=== PATIENT | male | born 1955 | race Caucasian/White ===

== ENCOUNTER 2024-02-23 09:21 | Inpatient (IN) ==
[2024-02-23] MEDS ORDERED: IOPAMIDOL 100 ML BOTTLE IV ONE (09:22)
[2024-02-23 12:35] LABS: ALT/SGPT 15 U/L (<40); AST/SGOT 31 U/L (<40); Albumin 3.5 gm/dL (3.2-5.2); Albumin/Globulin Ratio 1.1 (1.0-2.3); Alkaline Phosphatase 248 U/L (39-117); Bilirubin,Total 0.5 mg/dL (0.1-1.0); Blood Urea Nitrogen 13 mg/dL (8-23); Carbon Dioxide 29 mmol/L (22-30); Chloride 97 mmol/L (96-108); Globulin 3.2 gm/dL (2.2-3.7); Glomerular Filtration Rate 95; Glucose 136 mg/dL (70-105); Potassium 3.6 mmol/L (3.3-5.1); Sodium 138 mmol/L (133-145)
[2024-02-23 12:35] LABS: Basophils # (Auto) 0.04 K/mcL (0.00-0.30); Basophils % (Auto) 0.2 % (0.0-2.0); Eosinophils # (Auto) 0 K/mcL (0.00-0.70); Eosinophils % (Auto) 0 % (0.0-7.0); Hematocrit 42.6 % (40.1-51.0); Hemoglobin 12.7 g/dL (13.7-17.5); Lymphocytes # (Auto) 0.45 K/mcL (1.50-4.80); Lymphocytes % (Auto) 2.6 % (15.5-49.0); Mean Cell Volume 104.9 fL (80.0-100.0); Mean Corpuscular HGB Conc 29.8 g/dL (31.0-36.0); Mean Platelet Volume 10.3 fL (8.8-12.5); Monocytes # (Auto) 0.28 K/mcL (0.10-0.90); Monocytes % (Auto) 1.6 % (1.0-12.0); Neutrophils % (Auto) 95.3 % (38.0-78.0); Platelet Count 329 K/mcL (140-440); RBC 4.06 M/mcL (4.63-6.08); Red Cell Distribution Width 12.8 % (11.5-14.5); WBC 17.3 K/mcL (4.5-11.0)
[2024-02-23] MEDS: HYDROcodone/APAP 5/325MG TABLET PO ONE (13:09)
[2024-02-23] MEDS: cefTRIAXone 1 GM VIAL IV ONE (13:09)
[2024-02-23] MEDS: 0.9 % SODIUM CHLORIDE 1,000 ML IV ONE (14:25)
[2024-02-23] MEDS: THIAMINE 200 MG in 0.9 % SODIUM CHLORIDE 50 ML IV ONE (14:37)
[2024-02-23 16:00] LABS: Appearance,Urine Clear (Clear); Bacteria,Urine Many /hpf (0); Bilirubin,Urine Negative (Negative); Calcium Oxalate Crystals,Urine Few /hpf; Color,Urine Yellow; Glucose,Urine (UA) Negative (Negative); Ketones,Urine Negative (Negative); Leukocyte Esterase,Urine Trace /uL (Negative); Nitrate,Urine Positive (Negative); PH,Urine 5.5 (5.0-9.0); Protein,Urine Negative (Negative); Urine Blood Negative ery/mcL (Negative); Urine RBC 0 /hpf (0-3); Urine Squamous Epithelial Cell 0 /hpf (0-4); Urine WBC 14 /hpf (0-4); Urobilinogen,Urine Normal
[2024-02-23] MEDS ORDERED: NALOXONE HCL 0.4 MG/ML VIAL IV PRN (16:36)
[2024-02-23] MEDS: HYDROmorphone 1 MG/ML SYRINGE IV ONE ×2 (16:45→20:00)
[2024-02-23] MEDS: HYDROmorphone 1 MG/ML SYRINGE ONE ×2 (17:00→20:03)
[2024-02-23 17:41] LABS: INR 1.1 (0.9-1.1); Partial Thromboplastin Time 35.3 sec (20.0-37.0); Prothrombin Time 14.8 sec (11.9-14.5)
[2024-02-23] MEDS ORDERED: ACETAMINOPHEN 325 MG TABLET PO PRN (17:47)
[2024-02-23] MEDS ORDERED: IPRATROPIUM/ALBUTEROL 3 ML AMPUL.NEB NEB PRN (17:47)
[2024-02-23] MEDS: VANCOMYCIN PER PHARMACY IV ONE (18:18)
[2024-02-23] MEDS: LACTATED RINGERS 1,000 ML IV SCH (18:27)
[2024-02-23] MEDS: CEFEPIME 2 GM VIAL IV SCH (18:28)
[2024-02-23] MEDS: HEPARIN SOD,PORK IN 0.45% NACL 25,000 UNIT in PREMIX 1 BAG IV SCH (18:55)
[2024-02-23] MEDS: VANCOMYCIN 1,500 MG in 0.9 % SODIUM CHLORIDE 500 ML IV ONE (18:56)
[2024-02-23] MEDS: HEPARIN SOD,PORK IN 0.45% NACL 500 ML IV ONE (20:01)
[2024-02-23] MEDS: 0.9 % SODIUM CHLORIDE 10 ML SYRINGE IV SCH (20:01)
[2024-02-23] MEDS: SENNOSIDES 1 TABLET PO PRN (21:25)
[2024-02-23] MEDS: POLYETHYLENE GLYCOL 3350 17 GM PACKET PO PRN (21:25)
[2024-02-23] MEDS: HYDROcodone/APAP 5/325MG TABLET PO PRN (21:25)
[2024-02-23] MEDS: fentaNYL 50 MCG PATCH TD SCH (22:26)
[2024-02-24] MEDS: HYDROcodone/APAP 10/325MG TABLET PO PRN ×2 (01:05→10:09)
[2024-02-24 06:41] LABS: Basophils # (Auto) 0.04 K/mcL (0.00-0.30); Basophils % (Auto) 0.6 % (0.0-2.0); Eosinophils # (Auto) 0.04 K/mcL (0.00-0.70); Eosinophils % (Auto) 0.6 % (0.0-7.0); Hematocrit 29.2 % (40.1-51.0); Hemoglobin 9.3 g/dL (13.7-17.5); Lymphocytes # (Auto) 0.81 K/mcL (1.50-4.80); Lymphocytes % (Auto) 11.3 % (15.5-49.0); Mean Cell Volume 96.7 fL (80.0-100.0); Mean Corpuscular HGB Conc 31.8 g/dL (31.0-36.0); Mean Platelet Volume 10.2 fL (8.8-12.5); Monocytes # (Auto) 0.71 K/mcL (0.10-0.90); Monocytes % (Auto) 9.9 % (1.0-12.0); Neutrophils % (Auto) 77.3 % (38.0-78.0); Platelet Count 253 K/mcL (140-440); RBC 3.02 M/mcL (4.63-6.08); Red Cell Distribution Width 12.7 % (11.5-14.5); WBC 7.2 K/mcL (4.5-11.0)
[2024-02-24 06:55] LABS: ALT/SGPT 27 U/L (<40); AST/SGOT 34 U/L (<40); Albumin 2.6 gm/dL (3.2-5.2); Alkaline Phosphatase 207 U/L (39-117); Bilirubin,Direct < 0.2 mg/dL (0-0.3); Bilirubin,Total 0.2 mg/dL (0.1-1.0); Blood Urea Nitrogen 9 mg/dL (8-23); Calcium 9.1 mg/dL (8.6-10.4); Carbon Dioxide 27 mmol/L (22-30); Chloride 102 mmol/L (96-108); Globulin 2.5 gm/dL (2.2-3.7); Glomerular Filtration Rate 119; Glucose 108 mg/dL (70-105); Lactate Dehydrogenase 103 U/L (135-225); Potassium 3.3 mmol/L (3.3-5.1); Sodium 139 mmol/L (133-145); Triglycerides 99 mg/dL (<150); Uric Acid 5.8 mg/dL (2.5-8.0)
[2024-02-24] MEDS ORDERED: VANCOMYCIN PER PHARMACY IV SCH (07:45)
[2024-02-24] MEDS: PANTOPRAZOLE 40 MG TABLET PO SCH (07:55)
[2024-02-24] MEDS ORDERED: HYDROcodone/APAP 10/325MG TABLET PO PRN (08:02)
[2024-02-24] MEDS: LIOTHYRONINE 5 MCG TABLET PO SCH (09:33)
[2024-02-24] MEDS: LEVOTHYROXINE 75 MCG TABLET PO SCH (09:33)
[2024-02-24] MEDS: VANCOMYCIN 1,000 MG in 0.9 % SODIUM CHLORIDE 250 ML IV SCH (10:09)
[2024-02-24] MEDS: DALFAMPRIDINE 10 MG PO SCH (10:45)
[2024-02-24] MEDS: HEPARIN SOD,PORK IN 0.45% NACL 500 ML IV ONE (15:20)
[2024-02-24] MEDS: BACLOFEN INTRATHECA SCH (18:47)
[2024-02-25 06:29] LABS: Basophils # (Auto) 0.04 K/mcL (0.00-0.30); Basophils % (Auto) 0.6 % (0.0-2.0); Eosinophils # (Auto) 0.04 K/mcL (0.00-0.70); Eosinophils % (Auto) 0.6 % (0.0-7.0); Hematocrit 30.1 % (40.1-51.0); Hemoglobin 9.8 g/dL (13.7-17.5); Lymphocytes # (Auto) 0.97 K/mcL (1.50-4.80); Lymphocytes % (Auto) 13.6 % (15.5-49.0); Mean Corpuscular HGB Conc 32.6 g/dL (31.0-36.0); Monocytes # (Auto) 0.79 K/mcL (0.10-0.90); Monocytes % (Auto) 11.1 % (1.0-12.0); Platelet Count 277 K/mcL (140-440); RBC 3.17 M/mcL (4.63-6.08); Red Cell Distribution Width 12.5 % (11.5-14.5); WBC 7.1 K/mcL (4.5-11.0)
[2024-02-25 06:53] LABS: ALT/SGPT 20 U/L (<40); AST/SGOT 22 U/L (<40); Albumin 2.7 gm/dL (3.2-5.2); Albumin/Globulin Ratio 1.1 (1.0-2.3); Alkaline Phosphatase 194 U/L (39-117); Bilirubin,Direct < 0.2 mg/dL (0-0.3); Bilirubin,Total < 0.2 mg/dL (0.1-1.0); Blood Urea Nitrogen 8 mg/dL (8-23); Calcium 8.7 mg/dL (8.6-10.4); Carbon Dioxide 23 mmol/L (22-30); Chloride 102 mmol/L (96-108); Globulin 2.4 gm/dL (2.2-3.7); Glomerular Filtration Rate 119; Glucose 108 mg/dL (70-105); Lactate Dehydrogenase 110 U/L (135-225); Phosphorous 2.4 mg/dL (2.5-4.5); Potassium 3.2 mmol/L (3.3-5.1); Sodium 136 mmol/L (133-145); Triglycerides 132 mg/dL (<150); Uric Acid 5.5 mg/dL (2.5-8.0)
[2024-02-25 07:44] LABS: Anti-XA-UFH 0.69 IU/mL (0.30-0.60)
[2024-02-25] MEDS: POTASSIUM CHLORIDE 20 MEQ TABLET PO ONE (08:20)
[2024-02-25] MEDS: PYRIDOXINE 100 MG TABLET PO SCH (08:20)
[2024-02-25] MEDS ORDERED: BETAINE HCL 300 MG PO SCH (09:00)
[2024-02-25] MEDS ORDERED: FISH OIL 1,000 MG CAPSULE PO SCH (09:00)
[2024-02-25] MEDS: LIDOCAINE 4% TOP PATCH TOPICAL SCH (11:54)
[2024-02-25] MEDS: HEPARIN 5,000 UNIT/ML VIAL IV ONE (12:09)
[2024-02-25] MEDS: DALFAMPRIDINE 10 MG PO SCH (19:10)
[2024-02-25] MEDS: KETOROLAC 15 MG/ML VIAL IV PRN (19:10)
[2024-02-25] MEDS: ENOXAPARIN 80 MG/0.8 ML SYRINGE SQ SCH (21:13)
[2024-02-26 06:45] LABS: ALT/SGPT 16 U/L (<40); AST/SGOT 18 U/L (<40); Albumin 2.7 gm/dL (3.2-5.2); Albumin/Globulin Ratio 1.1 (1.0-2.3); Alkaline Phosphatase 185 U/L (39-117); Bilirubin,Direct < 0.2 mg/dL (0-0.3); Bilirubin,Total 0.2 mg/dL (0.1-1.0); Blood Urea Nitrogen 6 mg/dL (8-23); Calcium 8.9 mg/dL (8.6-10.4); Carbon Dioxide 24 mmol/L (22-30); Chloride 106 mmol/L (96-108); Globulin 2.5 gm/dL (2.2-3.7); Glomerular Filtration Rate 119; Glucose 109 mg/dL (70-105); Lactate Dehydrogenase 115 U/L (135-225); Phosphorous 2.2 mg/dL (2.5-4.5); Potassium 3.1 mmol/L (3.3-5.1); Sodium 139 mmol/L (133-145); Triglycerides 148 mg/dL (<150); Uric Acid 4.7 mg/dL (2.5-8.0)
[2024-02-26] MEDS: POTASSIUM CHLORIDE 20 MEQ TABLET PO ONE (08:45)
[2024-02-26] MEDS ORDERED: LINEZOLID 600 MG TABLET PO SCH (13:30)
[2024-02-26] MEDS ORDERED: FOSFOMYCIN TROMETHAMINE 3 GM PACKET PO ONE (13:41)
[2024-02-26] MEDS: DAPTOmycin 500 MG VIAL IV SCH (14:15)
[2024-02-26] MEDS ORDERED: BISMUTH SUBSALICYLATE 15 ML ORAL.SUSP PO PRN (20:15)
[2024-02-26] MEDS ORDERED: [UNRECOGNIZED DRUG - OTHER] PO SCH (21:00)
[2024-02-26] MEDS: BISMUTH SUBSALICYLATE 15 ML ORAL.SUSP PO ONE (21:14)
[2024-02-26] MEDS: LANSOPRAZOLE 15 MG PO SCH (21:36)
[2024-02-27 06:44] LABS: ALT/SGPT 25 U/L (<40); AST/SGOT 32 U/L (<40); Albumin 2.3 gm/dL (3.2-5.2); Albumin/Globulin Ratio 0.9 (1.0-2.3); Alkaline Phosphatase 218 U/L (39-117); Bilirubin,Direct < 0.2 mg/dL (0-0.3); Bilirubin,Total < 0.2 mg/dL (0.1-1.0); Blood Urea Nitrogen 7 mg/dL (8-23); Calcium 8.7 mg/dL (8.6-10.4); Carbon Dioxide 23 mmol/L (22-30); Chloride 109 mmol/L (96-108); Globulin 2.5 gm/dL (2.2-3.7); Glomerular Filtration Rate 119; Glucose 106 mg/dL (70-105); Lactate Dehydrogenase 106 U/L (135-225); Phosphorous 2.1 mg/dL (2.5-4.5); Potassium 3.7 mmol/L (3.3-5.1); Sodium 140 mmol/L (133-145); Triglycerides 131 mg/dL (<150); Uric Acid 4.3 mg/dL (2.5-8.0)
[2024-02-27] MEDS: HYDROcodone/APAP 10/325MG TABLET PO PRN (15:25)
[2024-02-28 17:10] LABS: Amphetamine Screen,Urine Suspect positive; Barbiturate Screen,Urine None detected; Benzodiazepines Screen,Urine None detected; Cannabinoid Screen,Urine Suspect Positive; Cocaine Screen,Urine None detected; Fentanyl, Urine Screen Suspect Positive; Opiate Screen,Urine Suspect Positive; Oxycodone, Urine Screen None detected; Phencyclidine Screen,Urine None detected
[2024-02-28] MEDS: BETAINE HCL 300 MG PO SCH (17:45)
[2024-02-28] MEDS: fentaNYL 50 MCG PATCH TD SCH (23:56)
[2024-02-29 05:49] LABS: Basophils # (Auto) 0.04 K/mcL (0.00-0.30); Basophils % (Auto) 0.6 % (0.0-2.0); Eosinophils # (Auto) 0.28 K/mcL (0.00-0.70); Eosinophils % (Auto) 3.9 % (0.0-7.0); Hematocrit 31.4 % (40.1-51.0); Hemoglobin 10.1 g/dL (13.7-17.5); Lymphocytes # (Auto) 1.35 K/mcL (1.50-4.80); Lymphocytes % (Auto) 18.7 % (15.5-49.0); Mean Cell Volume 94.9 fL (80.0-100.0); Mean Corpuscular HGB Conc 32.2 g/dL (31.0-36.0); Mean Platelet Volume 9.5 fL (8.8-12.5); Monocytes # (Auto) 0.64 K/mcL (0.10-0.90); Monocytes % (Auto) 8.9 % (1.0-12.0); Neutrophils % (Auto) 67.1 % (38.0-78.0); Platelet Count 297 K/mcL (140-440); RBC 3.31 M/mcL (4.63-6.08); Red Cell Distribution Width 12.6 % (11.5-14.5); WBC 7.2 K/mcL (4.5-11.0)
[2024-02-29 06:15] LABS: ALT/SGPT 90 U/L (<40); AST/SGOT 96 U/L (<40); Albumin 2.4 gm/dL (3.2-5.2); Albumin/Globulin Ratio 0.9 (1.0-2.3); Alkaline Phosphatase 429 U/L (39-117); Bilirubin,Direct < 0.2 mg/dL (0-0.3); Bilirubin,Total 0.2 mg/dL (0.1-1.0); Blood Urea Nitrogen 7 mg/dL (8-23); Calcium 9.2 mg/dL (8.6-10.4); Carbon Dioxide 25 mmol/L (22-30); Chloride 108 mmol/L (96-108); Globulin 2.7 gm/dL (2.2-3.7); Glomerular Filtration Rate 119; Glucose 108 mg/dL (70-105); Lactate Dehydrogenase 123 U/L (135-225); Phosphorous 2.4 mg/dL (2.5-4.5); Potassium 3.7 mmol/L (3.3-5.1); Sodium 140 mmol/L (133-145); Triglycerides 125 mg/dL (<150); Uric Acid 2.9 mg/dL (2.5-8.0)
[2024-02-29] MEDS ORDERED: PROPOFOL 200 MG/20 ML VIAL IV ONE (08:40)
[2024-02-29] MEDS ORDERED: SUGAMMADEX SODIUM 200 MG/2 ML VIAL IV ONE (08:40)
[2024-02-29] MEDS ORDERED: fentaNYL 100 MCG/2 ML VIAL ONE (08:40)
[2024-02-29] MEDS ORDERED: GLYCOPYRROLATE 0.2 MG/ML VIAL IV ONE ×2 (08:43→09:04)
[2024-02-29] MEDS ORDERED: DEXAMETHASONE 10 MG/ML VIAL ONE (08:43)
[2024-02-29] MEDS ORDERED: ONDANSETRON 4 MG/2 ML VIAL ONE (08:43)
[2024-02-29] MEDS ORDERED: ROCURONIUM 10 MG/ML ML IV ONE (08:43)
[2024-02-29] MEDS ORDERED: PHENYLephrine 1 MG/10 ML SYRINGE (ANEST) ONE (09:21)
[2024-02-29] MEDS ORDERED: IPRATROPIUM/ALBUTEROL 3 ML AMPUL.NEB NEB PRN (09:38)
[2024-02-29] MEDS ORDERED: ONDANSETRON 4 MG/2 ML VIAL IV PRN (09:38)
[2024-02-29] MEDS: fentaNYL 100 MCG/2 ML VIAL IV PRN (10:50)
[2024-02-29] MEDS: LACTATED RINGERS 1,000 ML IV SCH (18:42)
[2024-03-01] MEDS: LANSOPRAZOLE 30 MG PO SCH (07:24)
[2024-03-03] MEDS: ONDANSETRON 4 MG/2 ML VIAL IV PRN (12:31)
[2024-03-03] MEDS: BISACODYL 10 MG SUPP.RECT PR PRN (12:31)
[2024-03-04 06:23] LABS: ALT/SGPT 74 U/L (<40); AST/SGOT 39 U/L (<40); Albumin 2.7 gm/dL (3.2-5.2); Alkaline Phosphatase 419 U/L (39-117); Bilirubin,Direct < 0.2 mg/dL (0-0.3); Bilirubin,Total < 0.2 mg/dL (0.1-1.0); Blood Urea Nitrogen 8 mg/dL (8-23); Calcium 8.8 mg/dL (8.6-10.4); Carbon Dioxide 26 mmol/L (22-30); Chloride 103 mmol/L (96-108); Globulin 2.7 gm/dL (2.2-3.7); Glomerular Filtration Rate 134; Glucose 109 mg/dL (70-105); Lactate Dehydrogenase 112 U/L (135-225); Phosphorous 3.7 mg/dL (2.5-4.5); Potassium 3.9 mmol/L (3.3-5.1); Sodium 138 mmol/L (133-145); Triglycerides 139 mg/dL (<150); Uric Acid 2.4 mg/dL (2.5-8.0)
[2024-03-04] MEDS: DAPTOmycin 500 MG VIAL IV SCH (08:31)
== END 2024-03-04 11:45 | DRG 853 ==
LOC: ED 09:21 → ICU 17:30 → MEDSUR 02-25 20:56
PROVIDERS: ADMIT Student in an Organized Health Care Education/Training Program; ATTEND Internal Medicine